=== PATIENT | female | born 1975 | race Caucasian/White ===

== ENCOUNTER 2017-01-17 16:43 | Emergency (ER) | payer MEDICAID ==
[~2017-01-17] VITALS: Ht 172.7 cm; Wt 130.0 kg
[~2017-01-17 16:43] MED LIST: ACET325T14 PO; ALBU0.63 NEB; ALPR0.25 PO; AMLO5TAB2 PO; BECL8.7A6 INH; CEFD300C2 PO; CEPH-375 PO; CLIN300C93 PO; CLON1TAB PO; DIPH50CA PO; EPI PEN; FURO20TA3 PO; HYDR-3138 PO; HYDR-3240 PO; HYDR-3342 PO; LAMO25TB PO; LITH150C PO; LITH300T PO; MELO-190 PO; METF500T4 PO; METH10TA4 PO; METH500T97 PO; METO200T3 PO; METO50TA82 PO; NICO1PAT10 TD; NICO1PAT4 TD; OPIU1SUP PR; OXYB5TAB7 PO; PARO10TA24 PO; PARO10TA3 PO; PARO20TA55 PO; PRED-402 PO; SULF1TAB24 PO; TOPI100T94 PO; TRAM50TA2 PO; TRAZ50TA18 PO; [UNRECOGNIZED DRUG - OTHER]; [UNRECOGNIZED DRUG - OTHER]
[2017-01-17] MEDS ORDERED: predniSONE 50MG TABLET PO STA (16:48)
[2017-01-17] MEDS ORDERED: FAMOTIDINE 20 MG TABLET ONE (17:20)
[2017-01-17] MEDS ORDERED: FAMOTIDINE 20 MG TABLET PO ONE (17:30)
[2017-01-17 18:08] VITALS: BP 158/92
== END 2017-01-17 18:10 | disposition home or self-care (01) ==
LOC: ED 17:05
DX: L50.0 Allergic urticaria (principal); I10 Essential (primary) hypertension; E11.9 Type 2 diabetes mellitus without complications; J45.909 Unspecified asthma, uncomplicated; Z90.710 Acquired absence of both cervix and uterus; Z88.1 Allergy status to other antibiotic agents
CPT/HCPCS: 99283; J7512

== ENCOUNTER 2017-04-29 16:00 | Emergency (ER) | payer MEDICAID ==
[~2017-04-29] VITALS: Ht 172.7 cm; Wt 140.6 kg
[~2017-04-29 16:00] MED LIST changes: -CEFD300C2 PO; +CEFD300C37 PO; -LITH300T PO; +LITH300T30 PO
[2017-04-29 16:05] VITALS: BP 174/114
[2017-04-29] MEDS ORDERED: LIDOCAINE 1%, 10ML INFIL ONE (16:30)
== END 2017-04-29 17:07 | disposition home or self-care (01) ==
LOC: ED 17:00
DX: H60.01 Abscess of right external ear (principal); I10 Essential (primary) hypertension; J45.909 Unspecified asthma, uncomplicated
CPT/HCPCS: 10160

== ENCOUNTER 2017-05-07 03:59 | Emergency (ER) | payer MEDICAID | END 2017-05-07 04:58 | disposition home or self-care (01) | LOC: ED 04:52 | DX: R21 Rash and other nonspecific skin eruption (principal); E11.9 Type 2 diabetes mellitus without complications | CPT/HCPCS: 99281 ==

== ENCOUNTER 2017-07-21 01:40 | Emergency (ER) | payer MEDICAID ==
[~2017-07-21] VITALS: Ht 172.7 cm; Wt 144.6 kg
[~2017-07-21 01:40] MED LIST changes: +CLIN300C8 PO; -CLIN300C93 PO; -HYDR-3138 PO; +HYDR-3237 PO; -MELO-190 PO; +MELO7.5T31 PO; -METO200T3 PO; +METO200T5 PO; +NICO-485 TD; +NICO-486 TD; -NICO1PAT10 TD; -NICO1PAT4 TD; -PARO10TA24 PO; +PARO10TA56 PO; -PARO20TA55 PO; +PARO20TA98 PO; +TOPI100T8 PO; -TOPI100T94 PO
[2017-07-21] MEDS ORDERED: KETOROLAC 30 MG/1 ML IVPush ONE (02:30)
[2017-07-21] MEDS ORDERED: ONDANSETRON 2MG/ML, 2ML IVPush ONE (02:30)
[2017-07-21] MEDS ORDERED: SODIUM CHLORIDE FLUSH 10ML SYR IVF ONE (02:30)
[2017-07-21 02:46] LABS: HEMATOCRIT 41.7 % (34.6-47.8); HEMOGLOBIN 14.2 g/dL (11.7-16.4); WHITE BLOOD COUNT 7.5 x10^3/uL (3.4-10)
[2017-07-21] MEDS ORDERED: morphine SULFATE 10 MG/ML, 1ML ONE (02:47)
[2017-07-21] MEDS ORDERED: KETOROLAC 30 MG/1 ML ONE ×2 (02:47→03:19)
[2017-07-21] MEDS ORDERED: ONDANSETRON 2MG/ML, 2ML ONE (02:48)
[2017-07-21] MEDS: morphine SULFATE 10 MG/ML, 1ML IVPush PRN ×2 (02:50→03:43)
[2017-07-21 02:51] LABS: BLOOD UREA NITROGEN 11 mg/dL (7-18)
[2017-07-21] MEDS ORDERED: HYDROmorphone 1 MG/ML, 1ML IM ONE (03:00)
[2017-07-21] MEDS ORDERED: KETOROLAC 30 MG/1 ML IM ONE (03:00)
[2017-07-21] MEDS ORDERED: HYDROmorphone 1 MG/ML, 1ML ONE (03:19)
[2017-07-21 03:34] VITALS: BP 194/98
== END 2017-07-21 03:37 | disposition home or self-care (01) ==
LOC: ED 02:43
DX: G89.29 Other chronic pain (principal); R10.9 Unspecified abdominal pain; I10 Essential (primary) hypertension; E11.9 Type 2 diabetes mellitus without complications; J45.909 Unspecified asthma, uncomplicated; Z90.710 Acquired absence of both cervix and uterus
CPT/HCPCS: 36415; 74176; 80048; 81003; 82040; 85025; 96374; 96375; 99285; J1885; J2405; J2270

== ENCOUNTER 2018-05-27 08:16 | Emergency (ER) | payer MEDICAID ==
[~2018-05-27] VITALS: Ht 172.7 cm; Wt 145.3 kg
[~2018-05-27 08:16] MED LIST changes: -LAMO25TB PO; +LAMO25TB7 PO; -METF500T4 PO; +METF500T5 PO; +METO200T47 PO; -METO200T5 PO; +TRAZ-136 PO; -TRAZ50TA18 PO
[2018-05-27] MEDS ORDERED: FUROSEMIDE PO (08:39)
[2018-05-27] MEDS ORDERED: SODIUM CHLORIDE FLUSH 10ML SYR IVF ONE (09:00)
[2018-05-27] MEDS ORDERED: METOCLOPRAMIDE 5 MG/ML, 2ML IVPush ONE (09:00)
[2018-05-27] MEDS ORDERED: DIPHENHYDRAMINE 50 MG/ML, 1ML IVPush ONE (09:00)
[2018-05-27] MEDS ORDERED: KETOROLAC 30 MG/1 ML IVPush ONE (09:00)
[2018-05-27] MEDS ORDERED: KETOROLAC 30 MG/1 ML ONE (09:04)
[2018-05-27] MEDS ORDERED: METOCLOPRAMIDE 5 MG/ML, 2ML ONE (09:04)
[2018-05-27] MEDS ORDERED: DIPHENHYDRAMINE 50 MG CAPSULE ONE (09:05)
[2018-05-27] MEDS ORDERED: DIPHENHYDRAMINE 50 MG CAPSULE PO ONE (09:30)
[2018-05-27] MEDS ORDERED: DIPHENHYDRAMINE 25 MG CAPSULE PO ONE (09:30)
[2018-05-27] MEDS ORDERED: SODIUM CHLORIDE 0.9% 1,000ML IVBOLUS ONE (10:00)
[2018-05-27 10:10] LABS: BASOPHILS # (AUTO) 0.04 x10^3/uL (0-0.1); BASOPHILS % (AUTO) 1 % (0-1); EOSINOPHILS # (AUTO) 0.29 x10^3/uL (0-0.4); EOSINOPHILS % (AUTO) 4 % (1-7); LYMPHOCYTES # (AUTO) 3.09 x10^3/uL (1-3.4); LYMPHOCYTES % (AUTO) 42 % (22-44); MD NO; MEAN CORPUSCULAR HGB CONC 33.8 g/dL (32.4-35.8); MEAN CORPUSCULAR VOLUME 91.6 fL (80-100); MEAN PLATELET VOLUME 6.6 fL (7.4-10.4); MONOCYTES # (AUTO) 0.47 x10^3/uL (0.2-0.8); MONOCYTES % (AUTO) 6 % (2-9); NEUTROPHILS # (AUTO) 3.53 x10^3/uL (1.8-6.8); NEUTROPHILS % (AUTO) 48 % (42-75); PLATELET COUNT 338 x10^3/uL (130-400); RED BLOOD COUNT 5.18 x10^6/uL (3.82-5.3)
[2018-05-27 10:21] LABS: ALBUMIN 3.2 g/dL (3.4-5.0); ANION GAP 9 mmol/L (5-15); CALCIUM 8.6 mg/dL (8.5-10.1); CHLORIDE 105 mmol/L (98-107)
[2018-05-27 11:30] VITALS: BP 132/81
== END 2018-05-27 11:45 | disposition home or self-care (01) ==
LOC: ED 08:57
DX: R51 Headache (principal); I10 Essential (primary) hypertension; R42 Dizziness and giddiness; E11.9 Type 2 diabetes mellitus without complications; F17.210 Nicotine dependence, cigarettes, uncomplicated
CPT/HCPCS: 36415; 70450; 71045; 80048; 82040; 85025; 93005; 96361; 96374; 96375; 99285; J1885; J2765; J7030; Q0163

== ENCOUNTER 2019-03-19 22:15 | Emergency (ER) | payer MEDICAID ==
[~2019-03-19] VITALS: Ht 172.7 cm; Wt 146.6 kg
[~2019-03-19 22:15] MED LIST changes: +AMLO-150 PO; -AMLO5TAB2 PO; +FUROSEMIDE PO; +METF500T17 PO; -METF500T5 PO; -TRAZ-136 PO; +TRAZ50TA66 PO
--- NOTE | 2019-03-19 22:28 | NUR ---
assessment made. chart up for MD to see.
--- NOTE | 2019-03-19 22:38 | NUR ---
ERP at bedside.
--- NOTE | 2019-03-19 23:10 | NUR ---
urine sent to lab. 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
--- NOTE | 2019-03-19 23:19 | NUR ---
patient to X ray.
[2019-03-19 23:20] LABS: BASOPHILS # (AUTO) 0.03 x10^3/uL (0-0.1); BASOPHILS % (AUTO) 0 % (0-1); EOSINOPHILS # (AUTO) 0.21 x10^3/uL (0-0.4); EOSINOPHILS % (AUTO) 2 % (1-7); LYMPHOCYTES # (AUTO) 3.74 x10^3/uL (1-3.4); LYMPHOCYTES % (AUTO) 37 % (22-44); MD NO; MEAN CORPUSCULAR HEMOGLOBIN 31.6 pg (27.0-34.8); MEAN CORPUSCULAR HGB CONC 33.2 g/dL (32.4-35.8); MEAN CORPUSCULAR VOLUME 95.2 fL (80-100); MEAN PLATELET VOLUME 6.5 fL (7.4-10.4); MONOCYTES # (AUTO) 0.47 x10^3/uL (0.2-0.8); MONOCYTES % (AUTO) 5 % (2-9); NEUTROPHILS # (AUTO) 5.74 x10^3/uL (1.8-6.8); NEUTROPHILS % (AUTO) 56 % (42-75); PLATELET COUNT 319 x10^3/uL (130-400); RED BLOOD COUNT 4.93 x10^6/uL (3.82-5.3); RED CELL DISTRIBUTION WIDTH 14.2 % (9.6-15.2)
[2019-03-19 23:24] LABS: CULTURE INDICATED? NO; MICROSCOPIC NOT IND
[2019-03-19 23:32] LABS: AMPHETAMINE SCREEN, URINE Positive (Negative); BARBITURATE SCREEN, URINE Negative (Negative); BENZODIAZEPINE SCREEN, URINE Negative (Negative); CANNABINOID SCREEN, URINE Negative (Negative); COCAINE SCREEN, URINE Negative (Negative); METHADONE SCREEN, URINE Negative (Negative); OPIATE SCREEN, URINE Negative (Negative)
[2019-03-19 23:32] LABS: ANION GAP 6 mmol/L (5-15); CALCIUM 8.2 mg/dL (8.5-10.1); CHLORIDE 108 mmol/L (98-107)
[2019-03-19 23:35] LABS: ALANINE AMINOTRANSFERASE 29 U/L (12-78); ALBUMIN 3.2 g/dL (3.4-5.0); ALKALINE PHOSPHATASE 91 U/L (45-117); BILIRUBIN,TOTAL 0.2 mg/dL (0.2-1.0); CREATININE 0.94 mg/dL (0.55-1.02); TOTAL PROTEIN 6.8 g/dL (6.4-8.2)
--- NOTE | 2019-03-19 23:58 | NUR ---
X ray resulted. ERP at bedside for re-evaluation.
[2019-03-20 00:09] VITALS: BP 154/119
--- NOTE | 2019-03-20 00:09 | NUR ---
patient discharged with prescriptions and instruction. verbalized understanding.
== END 2019-03-20 00:11 | disposition home or self-care (01) ==
LOC: ED 23:28
DX: S39.013A Strain of muscle, fascia and tendon of pelvis, initial encounter (principal); R10.2 Pelvic and perineal pain; F15.129 Other stimulant abuse with intoxication, unspecified; Z72.9 Problem related to lifestyle, unspecified; E66.01 Morbid (severe) obesity due to excess calories; Z68.42 Body mass index [BMI] 45.0-49.9, adult; I10 Essential (primary) hypertension; E11.9 Type 2 diabetes mellitus without complications; J45.909 Unspecified asthma, uncomplicated; F41.1 Generalized anxiety disorder; F17.200 Nicotine dependence, unspecified, uncomplicated; Z90.710 Acquired absence of both cervix and uterus; X58.XXXA Exposure to other specified factors, initial encounter; Y93.89 Activity, other specified; Y92.89 Other specified places as the place of occurrence of the external cause; Y99.8 Other external cause status
CPT/HCPCS: 36415; 80053; 80307; 81003; 83690; 85025; 93005; 99284

== ENCOUNTER 2019-11-12 21:04 | Emergency (ER) | payer MEDICAID ==
[~2019-11-12] VITALS: Ht 172.7 cm; Wt 147.9 kg
[~2019-11-12 21:04] MED LIST changes: +OXYB5TAB10 PO; -OXYB5TAB7 PO
[2019-11-12 21:12] VITALS: BP 175/116
[2019-11-12] MEDS ORDERED: CLON1PAT2 SUBD (21:32)
[2019-11-12] MEDS ORDERED: PANT40GR PO (21:32)
[2019-11-12] MEDS ORDERED: DEXT10TA7 PO (21:32)
[2019-11-12] MEDS ORDERED: TRIA50CA3 PO (21:32)
[2019-11-12] MEDS ORDERED: potassium PO (21:32)
--- NOTE | 2019-11-12 21:38 | NUR ---
Pt alert and sitting up on gurney. Pt reports abscess to right inner calf x days. Pt reports it drained yesterday. Pt reports increased pain. Pt denies fevers/V but reports she feels unwell. Open circular wound noted to right inner calf. No active drainage noted. Dried piece of paper towel stuck to wound. No streaks noted from wound.
[2019-11-12 21:58] LABS: BASOPHILS # (AUTO) 0.03 x10^3/uL (0-0.1); BASOPHILS % (AUTO) 0 % (0-1); EOSINOPHILS # (AUTO) 0.26 x10^3/uL (0-0.4); EOSINOPHILS % (AUTO) 3 % (1-7); LYMPHOCYTES # (AUTO) 3.21 x10^3/uL (1-3.4); LYMPHOCYTES % (AUTO) 41 % (22-44); MD NO; MEAN CORPUSCULAR HEMOGLOBIN 31.4 pg (27.0-34.8); MEAN CORPUSCULAR HGB CONC 34.3 g/dL (32.4-35.8); MEAN CORPUSCULAR VOLUME 91.4 fL (80-100); MEAN PLATELET VOLUME 6.4 fL (7.4-10.4); MONOCYTES # (AUTO) 0.43 x10^3/uL (0.2-0.8); MONOCYTES % (AUTO) 6 % (2-9); NEUTROPHILS # (AUTO) 3.87 x10^3/uL (1.8-6.8); NEUTROPHILS % (AUTO) 50 % (42-75); PLATELET COUNT 347 x10^3/uL (130-400); RED BLOOD COUNT 4.69 x10^6/uL (3.82-5.3); RED CELL DISTRIBUTION WIDTH 13.3 % (9.6-15.2)
[2019-11-12] MEDS ORDERED: LIDOCAINE 2%, 20ML SQ ONE (22:00)
[2019-11-12] MEDS ORDERED: OXYcodone/APAP 5/325MG TABLET PO ONE (22:00)
[2019-11-12] MEDS ORDERED: LIDOCAINE-MPF 2% ,5ML ONE (22:04)
[2019-11-12] MEDS ORDERED: OXYcodone/APAP 5/325MG TABLET ONE (22:05)
[2019-11-12 22:06] LABS: ALBUMIN 2.9 g/dL (3.4-5.0); ANION GAP 6 mmol/L (5-15); CALCIUM 8.5 mg/dL (8.5-10.1); CHLORIDE 106 mmol/L (98-107); CREATININE 0.81 mg/dL (0.55-1.02)
--- NOTE | 2019-11-12 22:34 | NUR ---
Lidocaine at bedside for MD administration.
--- NOTE | 2019-11-12 23:25 | NUR ---
Pt d/c'd to self care. Pt alert, oriented and ambulatory. Wrap placed around wound. Pt educated on wound care, prescription, OTC meds, and follow-up. Pt VU. Pt ambulated out of ER.
== END 2019-11-12 23:27 | disposition home or self-care (01) ==
LOC: ED 22:05
DX: L02.415 Cutaneous abscess of right lower limb (principal); F17.200 Nicotine dependence, unspecified, uncomplicated; J45.909 Unspecified asthma, uncomplicated; I10 Essential (primary) hypertension; E11.9 Type 2 diabetes mellitus without complications; Z90.710 Acquired absence of both cervix and uterus
CPT/HCPCS: 10060; 36415; 80048; 82040; 85025

== ENCOUNTER 2020-08-10 01:04 | Emergency (ER) | payer MEDICAID ==
[~2020-08-10] VITALS: Ht 172.7 cm; Wt 142.6 kg
[~2020-08-10 01:04] MED LIST changes: +CLON1PAT2 SUBD; +DEXT10TA7 PO; +PANT40GR PO; +TRIA50CA3 PO; +potassium PO
[2020-08-10 01:07] VITALS: BP 198/129
== END 2020-08-10 01:51 | disposition left against medical advice (07) ==
LOC: ED 01:15
DX: M54.2 Cervicalgia (principal); Z53.21 Procedure and treatment not carried out due to patient leaving prior to being seen by health care provider